=== PATIENT | male | born 1970 | race Caucasian/White ===

== ENCOUNTER 2018-08-29 08:30 | Day surgery (SDC) | payer OTHER ==
[~2018-08-29 08:30] MED LIST: Buffered Lidocaine 1% SYRIN* 1 ML/SYRINGE INTRADERM ONE; Dexamethasone IV* 4 MG/ML 1 ML (4 MG) IV SLOW PU ONE; Famotidine IV* 10 MG/ML 2 ML (20 mg) IV ONE; Lactated Ringers 1000 ML Bag* 1,000 ML IV SCH
[2018-08-29] MEDS ORDERED: Dexamethasone IV* 4 MG/ML 1 ML (4 MG) ONE (08:43)
[2018-08-29] MEDS ORDERED: Buffered Lidocaine 1% SYRIN* 1 ML/SYRINGE INTRADERM ONE (08:44)
[2018-08-29] MEDS ORDERED: Famotidine IV* 10 MG/ML 2 ML (20 mg) ONE (08:44)
[2018-08-29] MEDS ORDERED: ceFAZolin 2 GM PREMIX in ORs 2 GM/50 ML BAG IVPB ONE (08:45)
[2018-08-29] MEDS ORDERED: Ondansetron INJ* 2 MG/ML VIAL IV PRN (11:13)
[2018-08-29] MEDS ORDERED: DiMENhydriNATE IV* 50 MG/ML VIAL IV PUSH PRN (11:13)
[2018-08-29] MEDS ORDERED: oxyCODONE/Acetamin 5/325 MG* TAB PO PRN (11:13)
[2018-08-29] MEDS ORDERED: Naloxone* 0.4 MG/ML 1 ML VIAL IV PRN (11:13)
[2018-08-29] MEDS ORDERED: fentaNYL* 50 MCG/ML 2 ML VIAL (100 MCG VIAL) IV PRN (11:13)
[2018-08-29] MEDS ORDERED: Ketorolac INJ* 30 MG/ML 1 ML VIAL ONE (11:19)
[2018-08-29] MEDS ORDERED: Propofol* 10 MG/ML 20 ML BTL ONE (11:19)
[2018-08-29] MEDS ORDERED: Midazolam* 1 MG/ML 5 ML VIAL (5 MG) ONE (11:19)
[2018-08-29] MEDS ORDERED: Ondansetron INJ* 2 MG/ML VIAL ONE (11:19)
[2018-08-29] MEDS ORDERED: fentaNYL* 50 MCG/ML 5 ML VIAL (250 MCG VIAL) ONE (11:19)
[2018-08-29] MEDS ORDERED: Bupivacaine 0.25% SDV PF* 10 ML VIAL INJ ONE (11:24)
[2018-08-29] MEDS ORDERED: oxyCODONE/Acetamin 5/325 MG* TAB ONE (13:19)
[2018-08-29 14:30] VITALS: BP 133/67
--- NOTE | 2018-08-29 19:50 | OP ---
DATE OF OPERATION: 08/29/18 - [facility] DATE OF : 70 SURGEON: Todd Gonzales MD. TANK REFINISHER: ISABELLE Courtney. An carpenter assistant installer was needed for the procedure to aid in positioning of the arm and retraction. ANESTHESIOLOGIST: Dr. Aleman. ANESTHESIA: General. PRE-OP DIAGNOSIS: Right fifth metacarpal malunion. POST-OP DIAGNOSIS: Right fifth metacarpal malunion. OPERATIVE PROCEDURE: Right of right fifth metacarpal malunion. INDICATIONS: Elbert had a fracture that healed, but it is very flexed and very rotated. It is getting in the way of the ring finger. We talked about risks and benefits. He wanted to proceed with repair. He understands that I will have to fix this with pins as it is too distal to fix with a plate. We will have to immobilize him for a period of probably 4 weeks after the malunion repair. There are risks of extensor tendon adhesions, stiffness, and pin tract infection. He understands all this and he wishes to proceed. ESTIMATED BLOOD LOSS: 2 mL. COMPLICATIONS: None. FINDINGS: See above and below. DESCRIPTION OF PROCEDURE: Elbert was seen in the preoperative holding area. The correct site, side, and procedure were identified. We came back to the operating room where the arm was prepped and draped in the usual fashion and time-out was performed. The arm was exsanguinated with the Esmarch and the tourniquet was inflated to 250 mmHg. I went ahead and made an incision over the ulnar aspect of the distal fifth metacarpal bone. Dissection was carried down. I did come just ulnar to the EDM tendon and I raised subperiosteal flaps to expose the malunion. As I came more distal, I had to release just a little bit of the ulnar sagittal band to get excellent visualization. I marked out the apex of deformity and I then used a small osteotome to osteotomize the malunion through the plane of the prior fracture. I very slowly worked around the bone and released circumferentially the periosteum around the bone there. The bone was then manipulated into a better position. I passed first from distal radial down a 0.062-mm K-wire and this was then passed down and it exited out of the bone proximal and ulnar. I then placed a second wire from distal ulnar exiting out proximal radial. After this was done, the alignment in the sagittal plane had been corrected and the rotation had been corrected. Everything was looking good. I irrigated out the wound. The periosteum was closed with 4-0 Prolene suture. The small little split in the extensor hinojosa there was repaired with a figure-of- eight 4-0 Prolene suture. Wound was irrigated out. Skin was closed with nylon. Pins were bent and clipped and dressed and then ulnar gutter splint was applied. He was taken to the recovery room in stable condition. [id number]/[facility] #: [id number] [facility]ITALKaren
== END 2018-08-29 14:35 ==
LOC: OR 08:30
PROVIDERS: ATTEND Orthopaedic Surgery Hand Surgery
DX: S62.336P Displaced fracture of neck of fifth metacarpal bone, right hand, subsequent encounter for fracture with malunion (principal); Z72.0 Tobacco use; K21.9 Gastro-esophageal reflux disease without esophagitis; Y04.0XXD Assault by unarmed brawl or fight, subsequent encounter; Y92.149 Unspecified place in prison as the place of occurrence of the external cause
CPT/HCPCS: 76000; A9270-GY; C1776; J0690; J1100; J1885; J2250; J2405; J2704; J3010; J3490